=== PATIENT | male | born 1960 | race Caucasian/White ===

== ENCOUNTER 2018-06-09 05:36 | Day surgery (SDC) | payer OTHER ==
[2018-06-09] MEDS ORDERED: DIPRIVAN 200 MG/20 ML IV ONE (05:37)
[2018-06-09] MEDS ORDERED: Lactated Ringers 1,000 ML IV ONE (06:04)
[2018-06-09] MEDS ORDERED: Lactated Ringers 1,000 ML IV SCH (06:30)
[2018-06-09 09:28] VITALS: PULSE 70; O2SAT 99
[2018-06-09 09:39] VITALS: BP 156/84
--- NOTE | 2018-06-09 09:46 | OP ---
SURGERY DATE/TIME: 06/09/2018817 PREOPERATIVE DIAGNOSIS: Screening colonoscopy. POSTOPERATIVE DIAGNOSIS: Normal colon. PROCEDURE: Colonoscopy. SURGEON: Luis Daniel Anthony M.D. ANESTHESIA: MAC by Raphael Saucedo CRNA. ESTIMATED BLOOD LOSS: None. SPECIMENS: None. DESCRIPTION OF PROCEDURE: After informed written consent was obtained, the patient was taken to the endoscopy suite. He underwent monitored anesthesia and digital rectal exam showed normal sphincter tone and no internal lesions. The scope was inserted into the rectum and sequentially the entire colonic mucosa was traversed. The level of cecum was reached and verified with direct visualization of ileocecal valve. Upon withdrawal careful mucosal inspection revealed no obvious mucosal abnormalities. Prep was noted to be good. Prior to withdrawal retroflexion was performed and was within normal limits. The scope was removed and the patient was transferred to the recovery room in good condition.
== END 2018-06-09 09:40 | disposition home or self-care (01) ==
LOC: SDC 05:36
PROVIDERS: ATTEND Family Medicine
DX: Z12.11 Encounter for screening for malignant neoplasm of colon (principal)
CPT/HCPCS: 94250; J2704